=== PATIENT | male | born 1980 | race Caucasian/White ===

== ENCOUNTER 2016-12-02 14:30 | Emergency (ER) | payer OTHER ==
[2016-12-02 14:36] VITALS: O2SAT 94
--- NOTE | 2016-12-02 14:44 | EDPHY ---
H & P Stated Complaint: Left rib pain Time Seen by Provider: 12/02/16 14:44 HPI/ROS: CHIEF COMPLAINT: Cough, left rib pain HISTORY OF PRESENT ILLNESS: The patient presents to the emergency department with complaints of cough and left-sided rib pain. The patient reports a slightly dry nonproductive cough for the past several days. He has developed some tenderness in his left ribs. The patient reports mild nausea. The patient denies significant abdominal pain. The patient denies significant past medical history. The patient does smoke on a daily basis. The patient's pain is worsened with palpation. The patient has taken no regular medication. REVIEW OF SYSTEMS: A comprehensive 10 point review of systems is otherwise negative aside from elements mentioned in the history of present illness. Source: Patient - Personal History Current Tetanus/Diphtheria Vaccine: Yes - Medical/Surgical History Hx Asthma: No Hx Chronic Respiratory Disease: No Hx Diabetes: No Hx Cardiac Disease: No Hx Renal Disease: No Hx Cirrhosis: No Hx Alcoholism: No Hx HIV/AIDS: No Hx Splenectomy or Spleen Trauma: No Other PMH: Denies - Social History Smoking Status: Current every day smoker - Physical Exam Exam: General Appearance: Alert, no distress Eyes: Pupils equal and round no pallor or injection ENT, Mouth: Mucous membranes moist Respiratory: Tenderness to palpation left posterior ribs, no subcutaneous emphysema, no rales or rhonchi appreciated Cardiovascular: Regular rate and rhythm Gastrointestinal: Abdomen is soft and nontender, no masses, bowel sounds normal Neurological: A&O, normal motor function, normal sensory exam, normal cranial nerves Skin: Warm and dry, no rashes Musculoskeletal: Neck is supple nontender Extremities: symmetrical, full range of motion Constitutional: Initial Vital Signs Temperature (C) 36.9 C 12/02/16 14:34 Heart Rate 98 12/02/16 14:34 Respiratory Rate 20 12/02/16 14:34 Blood Pressure 131/76 H 12/02/16 14:34 O2 Sat (%) 94 12/02/16 14:34 O2 Delivery Mode Room Air Allergies/Adverse Reactions: ibuprofen Allergy (Verified 12/02/16 14:33) Home Medications: Medication Instructions Recorded NK [No Known Home Meds] 10/30/16 Medical Decision Making - Diagnostics Imaging: Chest x-ray PA lateral: Images reviewed by myself, negative for focal infiltrate or rib fracture. Changes consistent with bronchitis or noted ED Course/Re-evaluation: The patient presents to the ED with left-sided rib pain in the setting of a clinical picture consistent with bronchitis. The patient has no evidence of a pneumonia rib fracture. The patient will be given a prescription for an inhaler and pain medications. The patient also has had some mild symptoms of dysuria and has no evidence of urinary tract infection. The patient's vital signs are stable and he is hemodynamically stable. The patient will be discharged from the emergency department with symptomatic care instructions. Differential Diagnosis: Differential diagnosis considered includes asthma, bronchitis, pneumonia - Data Points Laboratory Results: 12/02/16 14:32 Urine Color YELLOW Urine Appearance CLEAR Urine pH 5.0 (5.0-7.5) Ur Specific [place] 1.023 (1.002-1.030) Urine Protein NEGATIVE (NEGATIVE) Urine Ketones TRACE H (NEGATIVE) Urine Blood NEGATIVE (NEGATIVE) Urine Nitrate NEGATIVE (NEGATIVE) Urine Bilirubin NEGATIVE (NEGATIVE) Urine Urobilinogen NEGATIVE EU (0.2-1.0) Ur Leukocyte Esterase NEGATIVE (NEGATIVE) Ur Culture Indicated? NOT INDICATED (NI) Urine Glucose NEGATIVE (NEGATIVE) Departure - Departure Disposition: Home, Routine, Self-Care Clinical Impression: Acute bronchitis Condition: Good Instructions: Acute Bronchitis (ED) Additional Instructions: 1. Use inhaler as directed up to 4 times a day for your cough. 2. [place] as needed for pain. 3. Return to the ED for markedly worsening symptoms. 4. Please schedule a follow-up appointment with [facility]. Referrals: [facility] [Outside] - As per Instructions
[2016-12-02 15:08] LABS: COLOR YELLOW; LEUKOCYTE ESTERASE,URINE NEGATIVE (NEGATIVE); NITRITE,URINE NEGATIVE (NEGATIVE)
--- NOTE | 2016-12-02 15:20 | DX ---
PA and Lateral Chest December 02, 2016 Indication: Left rib pain. Cough. Findings: The lungs are clear except mild diffuse peribronchial thickening. No airspace consolidation , edema, effusion, pneumothorax or rib fracture. Impression: Bronchitis. No discernible rib fracture.
[2016-12-02 15:38] VITALS: BP 144/88; PULSE 89; RESP 18; TEMP 98.6
== END 2016-12-02 15:38 | disposition home or self-care (01) ==
DX: J20.9 Acute bronchitis, unspecified (principal); F17.200 Nicotine dependence, unspecified, uncomplicated

== ENCOUNTER 2016-12-11 09:07 | Emergency (ER) | payer OTHER ==
[2016-12-11 09:14] VITALS: RESP 18; TEMP 98.4
--- NOTE | 2016-12-11 09:35 | EDPHY ---
HPI/HX/ROS/PE/MDM Narrative: CHIEF COMPLAINT: "I'm still pretty sick from last week" HPI: The patient is a 35 y/o male complaining of persistent cough for the last 2 weeks. He was seen here 10 days ago for a cough and rib pain. A chest x-ray at that time was consistent with bronchitis and he was discharged with an albuterol inhaler and Dale for symptoms. He has been using the inhaler multiple times each day. He complains of continued left lower anterior rib pain while coughing that is unchanged from previous as well as difficulty sleeping due to the cough. He denies fever but endorses night sweats. Denies pertinent medical history. REVIEW OF SYSTEMS: Aside from elements discussed in the HPI, a comprehensive 10-point review of systems was reviewed and is negative. PMH: Denies SOCIAL HISTORY: Smokes daily, homeless Prior medical records reviewed including recent visit 12/02/16 for cough and rib pain. PHYSICAL EXAM: General:Patient is alert, in no acute distress. ENT:Eyes are normal to inspection. ENT inspection normal. Neck: Normal inspection. Full range of motion. Respiratory:No respiratory distress. Breath sounds normal bilaterally. Mild tenderness over lower left anterior ribs. Cardiovascular: Regular rate and rhythm. Strong peripheral pulses. Normal cap refill. Abdomen:The abdomen has very mild LUQ tenderness to palpation. There are no peritoneal signs. There are normal bowel sounds. Back: Normal to inspection. No tenderness to palpation. Skin: Normal color. No rash. Warm and dry. Extremities: Normal appearance. Full range of motion. Neuro: Oriented x3. Normal motor function. Normal sensory function. ED Course: Study: Chest x-ray Indication: Cough, rule out pneumonia Results: CT scan of the chest was obtained. The results of the study are negative for infiltrate, unchanged from previous. Radiologist report pending. I viewed the images myself on the PACS system. 1012: I discussed imaging results with the patient. He continues to have pain that extends somewhat into his LUQ. Plan for Chest CTA to rule out PE or splenic process. Study: CTA of the Chest Indication: Pain Results: CTA scan of the chest was obtained. The results of the study are Negative CT examination of the chest for acute pulmonary thromboembolic disease. Central bronchitis. The study was read by the radiologist, Dr. Piper. I viewed the images myself on the PACS system. I discussed imaging results with patient. He will discharged with standard bronchitis care instructions and referral to PCP. He is comfortable with this plan. MDM: This patient presents with continued cough. Given his complaint of LUQ pain, a CT was performed, which is negative. I wrote for prednisone and azithromycin. He requested additional narcotics, which I do not believe are indicated. Of note , prior to discharge, patient angrily refused prednisone, saying that homeless people are not treated well in the ER. The patient was actually treated extremely well in the ED, so this was quite a surprise. - Data Points Laboratory Results: Laboratory Results 12/11/16 10:25 12/11/16 12/11/16 12/11/16 10:45 10:42 10:25 WBC 6.49 10^3/uL (3.80-9.50) RBC 4.49 10^6/uL (4.40-6.38) Hgb 15.7 g/dL (13.7-17.5) POC Hgb 15.3 gm/dL (14.5-17.3) Hct 45.6 % (40.0-51.0) POC Hct 45 % (42.8-50.6) MCV 101.6 H fL (81.5-99.8) MCH 35.0 H pg (27.9-34.1) MCHC 34.4 g/dL (32.4-36.7) RDW 12.8 % (11.5-15.2) Plt Count 138 L 10^3/uL (150-400) MPV 11.0 fL (8.7-11.7) Neut % (Auto) 50.9 % (39.3-74.2) Lymph % (Auto) 36.7 % (15.0-45.0) Mccormick % (Auto) 10.0 % (4.5-13.0) Eos % (Auto) 2.0 % (0.6-7.6) Baso % (Auto) 0.2 L % (0.3-1.7) Nucleat RBC Rel Count 0.0 % (0.0-0.2) Absolute Neuts (auto) 3.31 10^3/uL (1.70-6.50) Absolute Lymphs (auto) 2.38 10^3/uL (1.00-3.00) Absolute Monos (auto) 0.65 10^3/uL (0.30-0.80) Absolute Eos (auto) 0.13 10^3/uL (0.03-0.40) Absolute Basos (auto) 0.01 L 10^3/uL (0.02-0.10) Absolute Nucleated RBC 0.00 10^3/uL (0-0.01) Immature Gran % 0.2 % (0.0-1.1) Immature Gran # 0.01 10^3/uL (0.00-0.10) POC Sodium 142 mEq/L (134-144) POC Potassium 4.1 mEq/L (3.3-5.0) POC Chloride 103 mEq/L (96-108) POC BUN 15 mg/dL (7-23) POC Creatinine 0.8 mg/dL (0.8-1.5) POC Glucose 90 mg/dL (70-100) Troponin I < 0.012 ng/mL (0-0.034) Point of Care Test Results: 12/11/16 10:42 POC Sodium 142 POC Potassium 4.1 POC Chloride 103 POC BUN 15 POC Creatinine 0.8 POC Glucose 90 General Time Seen by Provider: 12/11/16 09:09 Initial Vital Signs: Initial Vital Signs Temperature (C) 36.9 C 12/11/16 09:12 Heart Rate 90 12/11/16 09:12 Respiratory Rate 18 12/11/16 09:12 Blood Pressure 123/96 H 12/11/16 09:12 O2 Sat (%) 96 12/11/16 09:12 O2 Delivery Mode Room Air Allergies/Adverse Reactions: ibuprofen Allergy (Verified 12/11/16 09:11) Home Medications: Medication Instructions Recorded Albuterol [Ventolin Hfa Inhaler] 2 puffs IH QID PRN #1 mdi 12/02/16 Hydrocodone/APAP 5/325 [Dale 1 - 2 each PO Q6 PRN #20 tab 12/02/16 5/325] AZITHROMYCIN [Z-PACK] 250 mg PO DAILY #6 tab 12/11/16 Departure - Departure Disposition: Home, Routine, Self-Care Clinical Impression: Cough, Rib tenderness, Bronchitis Condition: Good Instructions: Acute Cough (ED), Acute Bronchitis (ED) Additional Instructions: Take azithromycin as prescribed. Be sure to finish the entire prescription. Use Tylenol and ibuprofen as directed on the bottle when needed for pain. FINN, YOUR PROVIDER TODAY IS REQUESTING THAT YOU GO TO [facility] FOR A FOLLOW-UP TO YOUR EMERGENCY ROOM VISITS FOR YOUR COUGH. STATED, WE ARE SUGGESTING YOU GO TO ONE OF THEIR WALK-IN CLINICS AT YOUR CONVENIENCE THIS WEEK. WALK-IN HOURS ARE FOLLOWS. [address] [phone] TUESDAYS 8-10AM THURSDAYS 2-4PM PLEASE CHECK WITH THE GROUP HOME THEY HAVE WALK-IN CLINICS THERE WELL. Referrals: [facility] [Outside] - As per Instructions Prescriptions: AZITHROMYCIN [Z-PACK] 250 mg PO DAILY #6 tab Report Scribed for: Hua Duncan Report Scribed by: Ktaty Anthony Date of Report: 12/11/16 Time of Report: 09:26 Physician Review and Approval Statement: Portions of this note were transcribed by an ED scribe. I personally performed the history, physical exam, and medical decision making; and confirm the accuracy of the information in the transcribed note.
[2016-12-11] MEDS ORDERED: IOPAMIDOL (ISOVUE 370) 100 ML BTL IV ONE (10:21)
--- NOTE | 2016-12-11 10:21 | DX ---
PA and lateral chest. December 11, 2016. Clinical History: Cough and left upper quadrant pain. Comparison Study: December 02, 2016. Findings: The lungs are clear. No pleural disease identified. Heart size is normal. Perihilar bronchial wall thickening is compatible with bronchitis.. Impression: Central bronchitis, otherwise negative..
[2016-12-11 10:59] LABS: % IMMATURE GRANULYOCYTES 0.2 % (0.0-1.1); ABSOLUTE IMMATURE GRANULOCYTES 0.01 10^3/uL (0.00-0.10); ADD DIFF? NO; ADD MORPH? NO; ADD SCAN? NO; ATYPICAL LYMPHOCYTE FLAG 60 (0-99); FRAGMENT RBC FLAG 0 (0-99); HEMATOCRIT 45.6 % (40.0-51.0); HEMOGLOBIN 15.7 g/dL (13.7-17.5); LEFT SHIFT FLG 0 (0-99); LIPEMIA HEMOLYSIS FLAG 90 (0-99); MEAN CELL HEMOGLOBIN CONCENTR. 34.4 g/dL (32.4-36.7); MEAN CELL VOLUME 101.6 fL (81.5-99.8); PLATELET CLUMPS FLAG 10 (0-99); PLATELET COUNT 138 10^3/uL (150-400); RED BLOOD CELL COUNT 4.49 10^6/uL (4.40-6.38); RED CELL DISTRIBUTION WIDTH 12.8 % (11.5-15.2)
--- NOTE | 2016-12-11 11:42 | CT ---
CT of the Chest With Contrast (CT Pulmonary Angiogram) December 11, 2016 Clinical History: Left lower chest pain Technique: Thinly collimated multidetector helical CT imaging was performed through the chest while 90 mL of Isovue-370 were injected intravenously without complication. The images were then transferr ed to an independent workstation where multiplanar and three-dimensional reconstructions were perform ed by the interpreting physician and reviewed at multiple windows. Dose reduction techniques were uti lized. Findings: Lung Windows: No infiltrate, effusion, or mass identified. Central bronchial wall thickening is junior tible with bronchitis. Mediastinal Windows: No significant mediastinal or axillary lymphadenopathy identified. No significan t pleural disease identified. Images of the upper abdomen appear normal. CT Pulmonary Angiogram: The visualized pulmonary arterial segments appear normal without filling defe ct to suggest acute pulmonary thromboembolic disease. Impression: Negative CT examination of the chest for acute pulmonary thromboembolic disease. Central bronchitis Results called to Dr. Hua Duncan at 11:40 AM at the time of the interpretation.
[2016-12-11] MEDS ORDERED: ACETAMINOPHEN 325 MG TAB PO ONE (11:45)
[2016-12-11] MEDS ORDERED: predniSONE 20 MG TAB PO ONE (11:48)
[2016-12-11 12:15] VITALS: BP 142/116; PULSE 89; O2SAT 92
== END 2016-12-11 12:10 | disposition home or self-care (01) ==
DX: J20.9 Acute bronchitis, unspecified (principal); R07.81 Pleurodynia; F17.200 Nicotine dependence, unspecified, uncomplicated
CPT/HCPCS: 71020; 71275; 99285; Q9967; 82947-QW

== ENCOUNTER → 2016-12-15 | Outpatient (CLI) | payer OTHER ==
--- NOTE | 2016-12-15 10:35 | DX ---
Left Shoulder, Three Views. History: Pain after fall. Findings: There is an ossification at the superior aspect of the acromion anteriorly and hypertrophy. There is an os acromiale. This could be hypertrophy at the synchondrosis or os acromiale versus less likely fracture. No other findings for fracture. Acromioclavicular and coracoclavicular distances ar e normal. Glenohumeral articulation is unremarkable. Impression: Os acromiale with hypertrophy at the synchondrosis versus less likely a fracture of the a cromion. Otherwise unremarkable left shoulder.
== END ==
LOC: BMCIMAGING 09:47
PROVIDERS: ATTEND Family Medicine
DX: M25.512 Pain in left shoulder (principal)

== ENCOUNTER 2017-04-18 17:46 | Emergency (ER) | payer OTHER ==
[~2017-04-18 17:46] MED LIST: CLOTRIMAZOLE 1% 15 GM CRTUBE TP SCH
[2017-04-18 17:52] VITALS: BP 131/85; PULSE 86; RESP 17; TEMP 98.4; O2SAT 93
--- NOTE | 2017-04-18 19:47 | EDPHY ---
H & P Smoking Status: Current every day smoker Time Seen by Provider: 04/18/17 19:37 HPI/ROS: CHIEF COMPLAINT: right foot complaint HISTORY OF PRESENT ILLNESS: 36-year-old male presents emergency department complaining of a rash to his right foot that started 3 days ago. Patient reports he has been hiking and backpacking for the last 3 weeks and his shoes and socks have been wet. He denies fevers or chills. (Mary Ortiz) Physical Exam: GEN: Awake, alert, oriented, no acute distress RESP: nl resp effort MSK: Full range of motion of ankle and knee SKIN: Right foot with erythema to toes, excoriated ball of foot, cap refill less than 2 seconds, 2+ pedal pulses, no calf tenderness (Mary Ortiz) Constitutional: Initial Vital Signs Temperature (C) 36.9 C 04/18/17 17:49 Heart Rate 86 04/18/17 17:49 Respiratory Rate 17 04/18/17 17:49 Blood Pressure 131/85 H 04/18/17 17:49 O2 Sat (%) 93 04/18/17 17:49 O2 Delivery Mode Room Air Allergies/Adverse Reactions: ibuprofen Allergy (Verified 04/18/17 17:49) Home Medications: Medication Instructions Recorded Albuterol [Ventolin Hfa Inhaler] 2 puffs IH QID PRN #1 mdi 12/02/16 Clotrimazole 1% [Lotrimin 1%] 1 miles TP TID #30 g 04/18/17 MDM/Departure - MDM ED Course/Re-evaluation: The patient was evaluated and managed by the Physician Health Assessment And Treatment Teacher/ Nurse Practitioner. My co-signature indicates that I have reviewed this chart and I agree with the findings and plan of care as documented. I am the secondary supervising physician. (Nesha Leo) - Depart Disposition: Home, Routine, Self-Care Clinical Impression: Tinea pedis Condition: Good Instructions: Athlete's Foot (ED), Skin Yeast Infection (ED) Additional Instructions: Keep your feet clean and dry. Placed the fungal cream 3 times a day for 1 week. You need to keep your shoes and socks dry and air feet out is much as possible. Prescriptions: Clotrimazole 1% [Lotrimin 1%] 1 miles TP TID #30 g Referrals: [facility],. [Clinic] - As per Instructions
== END 2017-04-18 20:08 | disposition home or self-care (01) ==
DX: B35.3 Tinea pedis (principal); F17.200 Nicotine dependence, unspecified, uncomplicated